=== PATIENT | female | born 1980 | race African-American/Black ===

== ENCOUNTER 2024-12-18 18:18 | Emergency (ER) | payer SELFPAY ==
[2024-12-18] MEDS ORDERED: Sodium Chloride 0.9% 2.5 ML Syringe FLUSH PRN (18:26)
[2024-12-18] MEDS ORDERED: Sodium Chloride 0.9% 10 ML Syringe FLUSH PRN (18:26)
[2024-12-18 19:32] LABS: BASOPHILS ABSOLUTE AUTO 0.02 K/uL (0.00-0.20); BASOPHILS PERCENT AUTO 0.4 % (0.0-1.0); HEMATOCRIT 37.5 % (37.0-47.0); HEMOGLOBIN 12.1 g/dL (12.0-16.0); LYMPHOCYTES ABSOLUTE AUTO 3.01 K/uL (1.00-4.80); LYMPHOCYTES PERCENT AUTO 60.2 % (24.0-44.0); MEAN CORPUSCULAR HEMOGLOBIN 29.3 pg (28.0-32.0); MEAN CORPUSCULAR HGB CONC 32.3 g/dL (32.0-36.0); MEAN CORPUSCULAR VOLUME 90.8 fL (83.0-99.0); MEAN PLATELET VOLUME 10.9 fL (9.4-12.3); MONOCYTES ABSOLUTE AUTO 0.26 K/uL (0.00-0.80); MONOCYTES PERCENT AUTO 5.2 % (0.0-8.0); NEUTROPHILS ABSOLUTE AUTO 1.61 K/uL (1.80-7.70); NEUTROPHILS PERCENT AUTO 32.2 % (41.0-71.0); PLATELET COUNT,PLT 208 K/uL (150-400); RED BLOOD CELL COUNT 4.13 M/uL (4.10-5.30)
[2024-12-18 20:06] LABS: A/G RATIO 0.9 (0.9-1.6); ALBUMIN 3.4 g/dL (3.4-5.0); BILIRUBIN TOTAL 0.3 mg/dL (0.2-1.0); CALCIUM 8.9 mg/dL (8.5-10.1); CARBON DIOXIDE,CO2 27.7 mmol/L (21.0-32.0); CREATININE 0.9 mg/dL (0.6-1.0); EST CRCL DRUG DOSING (CG) 97.84 mL/min
[2024-12-18] MEDS: Alum Hydrox/Mag Hydrox/Simeth 15 ML, Lidocaine 2% 5 ML PO ONE (20:09)
[2024-12-18] MEDS: Famotidine 20 MG Tab PO ONE (20:09)
[2024-12-18 20:12] LABS: MAGNESIUM 2.1 mg/dL (1.8-2.4)
== END 2024-12-18 22:45 | disposition home or self-care (01) ==
LOC: MW.ED 18:18
DX: R07.9 Chest pain, unspecified (principal)
CPT/HCPCS: 36415; 71046; 80053; 83690; 83735; 84484; 84703; 85025; 93005; 99285; A9270; 93010; 99284